=== PATIENT | female | born 1955 | race African-American/Black ===

== ENCOUNTER 2023-10-11 09:25 | Inpatient (IN) | payer MEDICARE ==
[2023-10-11 11:30] VITALS: BMI 33.7
[2023-10-11] MEDS ORDERED: Loratadine 10 MG TAB PO PRN (12:12)
[2023-10-11] MEDS ORDERED: Albuterol 2.5 MG (3 mL) NEB NEB PRN (12:12)
[2023-10-11] MEDS ORDERED: hydrOXYzine Pamoate 25 mg Capsule PO PRN (12:12)
[2023-10-11 12:25] LABS: Troponin I 6.541 ng/mL (< 0.028)
[2023-10-11] MEDS: Acetaminophen 325 MG TAB PO PRN (12:37)
[2023-10-11] MEDS: Nitroglycerin 2% Ointment 1 INCH/1 GM Packet TOP SCH ×2 (12:39→21:51)
[2023-10-11] MEDS: Sodium Chloride 0.9% 1,000 ML IV SCH ×2 (13:05→21:51)
[2023-10-11] MEDS: Gabapentin 300 MG CAP PO SCH (13:22)
[2023-10-11] MEDS ORDERED: Verapamil 5 MG/2 ML VIAL ONE (17:16)
[2023-10-11] MEDS ORDERED: Nitroglycerin 50 MG/250 ML BOT 250 ML ONE (17:16)
[2023-10-11] MEDS ORDERED: Adenosine 6 mg (2 mL) VIAL ONE (17:16)
[2023-10-11] MEDS ORDERED: Heparin 1,000 UNITS/ML VIAL ONE (17:16)
[2023-10-11] MEDS ORDERED: Heparin 10,000 UNITS/ 10 ML VIAL ONE ×2 (17:17→18:10)
[2023-10-11] MEDS ORDERED: fentaNYL 50 mcg/mL 1 mL Vial ONE (17:44)
[2023-10-11] MEDS ORDERED: Midazolam HCl 2 mg/2 ml Vial ONE (17:45)
[2023-10-11] MEDS: Mometasone 200 MCG HFA INHALER (RT USE) INH SCH (19:35)
[2023-10-11] MEDS ORDERED: Enoxaparin 100 MG (1 mL) SYRINGE SC SCH (21:00)
[2023-10-11] MEDS: Atorvastatin Calcium 40 MG TAB PO SCH (21:51)
[2023-10-11] MEDS: Clopidogrel Bisulfate 300 MG TAB PO SCH (21:51)
[2023-10-12 06:39] LABS: #Basophils Less than 0.03 10x3/uL (0.0-0.2); %Basophils 0.3 % (0.0-1.0); %Eosinophils 3.3 % (0.0-10.0); %Lymphocytes 31.3 % (21.0-51.0); %Monocytes 11.2 % (0.0-10.0); %Neutrophils 53.6 % (42.0-75.0); Hemoglobin 13.5 g/dL (12.0-16.0); Mean Corpuscular HGB CONC 34.6 g/dL (32.0-36.0); Mean Corpuscular Hemoglobin 28.7 pg (27.0-31.0); Mean Platelet Volume 9.3 fL (7.4-10.4); Platelet Count 296 10x3/uL (130-400)
[2023-10-12 06:56] LABS: ALT (SGPT) 36 U/L (8-55); AST (SGOT) 130 U/L (5-34); Albumin 3.3 g/dL (3.4-4.8); Alkaline Phosphatase 60 U/L (40-110); Anion Gap 13 mmol/L (10-20); BUN (Urea Nitrogen) 10 mg/dL (9.8-20.1); Bilirubin, Total 1.4 mg/dL (0.2-1.2); Calc. Creatinine Clearance 110 mL/min (70-130); Calcium 8.8 mg/dL (7.8-10.44); Carbon Dioxide 21 mmol/L (23-31); Cardiac Risk 2.7 (Less than 4.5); Chloride 109 mmol/L (98-107); Cholesterol 126 mg/dl (< 200 Desired); Estimated GFR 95; Glucose 91 mg/dL (80-115); HDL Cholesterol 46 mg/dL (>60 Neg Risk); LDL Cholesterol, Calculated 62 mg/dL; Potassium 3.9 mmol/L (3.5-5.1); Protein, Total 6.3 g/dL (5.8-8.1); Sodium 139 mmol/L (136-145); Triglycerides 89 mg/dL (Less than 150)
[2023-10-12] MEDS: Pantoprazole DR 40 MG TAB PO SCH (07:55)
[2023-10-12] MEDS: FLUoxetine HCl 20 MG CAP PO SCH (07:55)
[2023-10-12] MEDS: Hydroxychloroquine Sulfate 200 MG TAB PO SCH (07:55)
[2023-10-12] MEDS: Aspirin Chewable 81 MG TAB PO SCH (07:56)
[2023-10-12] MEDS: Aspirin 81 mg Enteric Coated Tablet PO SCH (07:56)
[2023-10-12 09:10] LABS: Critical Call Chem Troponin I NUR.BMD1@0910; Troponin I 19.413 ng/mL (< 0.028)
[2023-10-12 23:32] VITALS: BP 154/86
[2023-10-13 08:07] VITALS: TEMP 97.8
== END 2023-10-13 10:58 | disposition home or self-care (01) | DRG 251 ==
LOC: 2NO 10:56 → IMCU/EMU 19:50
PROVIDERS: ADMIT Family Medicine; ATTEND Internal Medicine
PROC: 02703ZZ Dilation of Coronary Artery, One Artery, Percutaneous Approach (ICD-10-PCS; principal; 2023-10-11)
PROC: 4A023N7 Measurement of Cardiac Sampling and Pressure, Left Heart, Percutaneous Approach (ICD-10-PCS; 2023-10-11)
PROC: B2111ZZ Fluoroscopy of Multiple Coronary Arteries using Low Osmolar Contrast (ICD-10-PCS; 2023-10-11)
PROC: B2151ZZ Fluoroscopy of Left Heart using Low Osmolar Contrast (ICD-10-PCS; 2023-10-11)
DX: I21.4 Non-ST elevation (NSTEMI) myocardial infarction (principal); E88.09 Other disorders of plasma-protein metabolism, not elsewhere classified; I10 Essential (primary) hypertension; E78.5 Hyperlipidemia, unspecified; J44.9 Chronic obstructive pulmonary disease, unspecified; D86.9 Sarcoidosis, unspecified; Z79.52 Long term (current) use of systemic steroids; K21.9 Gastro-esophageal reflux disease without esophagitis; F41.9 Anxiety disorder, unspecified; I77.1 Stricture of artery; M81.0 Age-related osteoporosis without current pathological fracture; M19.90 Unspecified osteoarthritis, unspecified site; I25.110 Atherosclerotic heart disease of native coronary artery with unstable angina pectoris; Z88.5 Allergy status to narcotic agent; Z79.899 Other long term (current) drug therapy; Z90.710 Acquired absence of both cervix and uterus; Z98.51 Tubal ligation status
CPT/HCPCS: 36415; 80053; 80061; 84484; 85025; 85347; 93005; 93010; 93306; C1725; C1769; C1887; C1894; J0153; J1644; J2250; J3010; J7050

== ENCOUNTER 2024-05-24 16:46 | Observation (INO) | payer MEDICARE ==
[2024-05-24 17:05] VITALS: BMI 32.3
[2024-05-24] MEDS ORDERED: SALMETEROL NASAL PRN (18:25)
[2024-05-24] MEDS ORDERED: FLUTICASONE PROPION NASAL PRN (18:25)
[2024-05-24] MEDS ORDERED: hydrOXYzine 25 MG TAB PO PRN (18:25)
[2024-05-24] MEDS ORDERED: [UNRECOGNIZED DRUG - OTHER] NASAL PRN (18:25)
[2024-05-24] MEDS ORDERED: Acetaminophen 325 MG TAB PO PRN (18:27)
[2024-05-24] MEDS ORDERED: Ondansetron PF 4 MG/2 ML Vial IVP PRN (18:27)
[2024-05-24] MEDS ORDERED: Nitroglycerin 0.4 MG TAB (25 Tab Bottle) SL PRN (18:29)
[2024-05-24] MEDS ORDERED: Albuterol 200 PUFF INH INH PRN (18:38)
[2024-05-24] MEDS: Gabapentin 300 MG CAP PO SCH (20:11)
[2024-05-24] MEDS: Atorvastatin Calcium 40 MG TAB PO SCH (20:12)
[2024-05-24] MEDS: Famotidine 20 MG TAB PO SCH (20:12)
[2024-05-24 20:53] LABS: Troponin I Less than 0.010 ng/mL (< 0.028)
[2024-05-24 22:17] LABS: Troponin I Less than 0.010 ng/mL (< 0.028)
[2024-05-25 05:09] LABS: #Basophils 0.03 10x3/uL (0.0-0.2); %Basophils 0.6 % (0.0-1.0); %Eosinophils 5.6 % (0.0-10.0); %Lymphocytes 35.9 % (21.0-51.0); %Monocytes 10.8 % (0.0-10.0); %Neutrophils 46.9 % (42.0-75.0); Hematocrit 37.6 % (36.0-47.0); Mean Corpuscular HGB CONC 34.6 g/dL (32.0-36.0); Mean Corpuscular Volume 83.9 fL (78.0-98.0); Mean Platelet Volume 9.8 fL (7.4-10.4); Platelet Count 287 10x3/uL (130-400); RBC Distribution Width 15.5 % (11.5-14.5); Red Blood Cell (RBC) Count 4.48 mill/uL (4.20-5.40)
[2024-05-25 05:37] LABS: Anion Gap 13 mmol/L (10-20); BUN (Urea Nitrogen) 11 mg/dL (9.8-20.1); Calc. Creatinine Clearance 104 mL/min (70-130); Calcium 9.2 mg/dL (7.8-10.44); Carbon Dioxide 22 mmol/L (23-31); Chloride 109 mmol/L (98-107); Estimated GFR 93; Glucose 100 mg/dL (80-115); Potassium 3.9 mmol/L (3.5-5.1); Sodium 140 mmol/L (136-145)
[2024-05-25] MEDS: Mometasone 100 MCG HFA INHALER (RT USE) INH SCH (08:05)
[2024-05-25] MEDS: Ipratropium/Albuterol 3 ML NEB NEB SCH (08:07)
[2024-05-25] MEDS ORDERED: Non-Formulary Item 1 EACH (Fluticasone/Umeclidin/Vilanter [Trelegy Ellipta 100-62.5-25] 1 PO SCH (09:00)
[2024-05-25] MEDS: Aspirin 81 mg Enteric Coated Tablet PO SCH (10:32)
[2024-05-25] MEDS: CeleCOXIB 100 MG CAP PO SCH (10:32)
[2024-05-25] MEDS: FLUoxetine HCl 20 MG CAP PO SCH (10:33)
[2024-05-25] MEDS: Cyanocobalamin (Vitamin B-12) 1,000 MCG TAB PO SCH (10:33)
[2024-05-25] MEDS: Clopidogrel Bisulfate 75 MG TAB PO SCH (10:33)
[2024-05-25] MEDS: Metoprolol Succinate XL 25 MG ER.TAB PO SCH (10:34)
[2024-05-25] MEDS: Hydroxychloroquine Sulfate 200 MG TAB PO SCH (10:34)
[2024-05-25] MEDS: Ketorolac Tromethamine 30 MG (1 mL) VIAL IVP SCH (10:36)
[2024-05-25 11:54] VITALS: BP 149/75; TEMP 99
== END 2024-05-25 15:15 | disposition home or self-care (01) ==
LOC: OBS 16:46
PROVIDERS: ADMIT Family Medicine; ATTEND Family Medicine
DX: R07.89 Other chest pain (principal); I25.10 Atherosclerotic heart disease of native coronary artery without angina pectoris; I25.2 Old myocardial infarction; I10 Essential (primary) hypertension; E78.5 Hyperlipidemia, unspecified; F41.9 Anxiety disorder, unspecified; J44.9 Chronic obstructive pulmonary disease, unspecified; D86.9 Sarcoidosis, unspecified; K21.9 Gastro-esophageal reflux disease without esophagitis; Z90.710 Acquired absence of both cervix and uterus; Z88.5 Allergy status to narcotic agent; Z79.51 Long term (current) use of inhaled steroids; Z79.1 Long term (current) use of non-steroidal anti-inflammatories (NSAID); Z79.02 Long term (current) use of antithrombotics/antiplatelets; Z79.82 Long term (current) use of aspirin; Z79.899 Other long term (current) drug therapy
CPT/HCPCS: 80048; 84484; 85025; 94640 ×2; 96374; G0378 ×2; J1885; 36415; J7620